=== PATIENT | male | born 2000 | race African-American/Black ===

== ENCOUNTER 2020-03-10 12:50 | Emergency (ER) | payer OTHER ==
[~2020-03-10] VITALS: Ht 180.3 cm; Wt 60.8 kg
[2020-03-10] MEDS ORDERED: ZYRTEC10 M4 PO (12:55)
[2020-03-10 13:48] LABS: ABSOLUTE EOSINOPHILS 0.1 thou/uL (0.0-0.7); ABSOLUTE LYMPHOCYTES 1.7 thou/uL (0.8-5.3); ABSOLUTE MONOCYTES 0.5 thou/uL (0.0-1.2); ABSOLUTE NEUTROPHILS 5.2 thou/uL (1.6-8.1); BASOPHILS 0.4 %; EOSINOPHILS 1.1 %; HEMOGLOBIN 14.2 gm/dL (14.0-18.0); LYMPHOCYTES 22.7 %; MCH 31.1 pg (26.0-34.0); MCV 94.1 fL (80.0-100.0); MONOCYTES 6.6 %; MPV 8.3 fl. (7.2-11.1); NUCLEATED RBCS 0 /100WBC; PLATELET COUNT* 216 thou/uL (150-400); POLYS 69.2 %; RBC 4.57 mil/uL (4.50-6.00); RDW-CV 13.9 % (10.5-14.5); WBC 7.6 thou/uL (4.0-11.0)
[2020-03-10 13:53] LABS: CALCIUM 9.4 mg/dL (8.5-10.1); CREATININE 1.1 mg/dL (0.6-1.3); POTASSIUM 3.5 mmol/L (3.5-5.1)
[2020-03-10] MEDS ORDERED: NORCO 5-325 TA1 EAC2 PO (13:54)
[2020-03-10] MEDS ORDERED: KEFLEX500 M1 PO (13:54)
[2020-03-10 13:57] LABS: APTT 25.6 Seconds (25.0-31.3); INR 1.1; PROTIME 11.9 Seconds (9.20-11.50)
[2020-03-10 15:29] VITALS: BP 138/72
== END 2020-03-10 15:30 | disposition home or self-care (01) ==
LOC: M.ERS 12:50
PROVIDERS: Nurse Practitioner Family
DX: S51.012A Laceration without foreign body of left elbow, initial encounter (principal); W18.39XA Other fall on same level, initial encounter; Y93.89 Activity, other specified; Y92.89 Other specified places as the place of occurrence of the external cause; Y99.8 Other external cause status